=== PATIENT | male | born 1980 | race Caucasian/White ===

== ENCOUNTER 2017-08-23 19:51 | Emergency (ER) | payer SELFPAY ==
[2017-08-23] MEDS ORDERED: Aspirin Low Dose CHEW TAB* 81 MG PO ONE (23:34)
[2017-08-23 23:56] LABS: Hematocrit 44 % (42-52); Hemoglobin 14.9 g/dl (14.0-18.0); Mean Corpuscular HGB Conc 34 g/dl (31-36); Mean Corpuscular Hemoglobin 29 pg (27-31); Mean Corpuscular Volume 87 fL (80-94); Mean Platelet Volume 8 um3 (7.4-10.4); Red Blood Count 5.06 10^6/ul (4.0-5.4); Red Cell Distribution Width 13 % (10.5-15); White Blood Count 14.8 10^3/ul (3.5-10.8)
[2017-08-24 00:12] LABS: Albumin 4.6 g/dL (3.2-5.2); BUN/Creatinine Ratio 13.2 (8-20); Calcium 9.8 mg/dL (8.6-10.3); EGFR African American 119.9 (>60); EGFR Non-African American 93.2 (>60); Globulin 2.5 g/dL (2-4); Potassium 3.4 mmol/L (3.5-5.0); Total Bilirubin 0.6 mg/dL (0.2-1.0); Total Protein 7.1 g/dL (6.4-8.9)
--- NOTE | 2017-08-24 01:55 | ED ---
HPI Chest Pain - HPI Summary HPI Summary: 36M presents with intermittent chest pain today. He was driving and felt a pressure like pain in center of chest that radiated into bilateral hands. He admits to weakness. He state felt sweaty. The initial incident lasted a couple seconds. Then two minutes later had another episode. Then couple minutes later another episode that again last couple minutes and since then has felt very weak. He also states he felt dizzy. He states chest pressure has persisted. He felt SOB with episode. He states has had chest pain intermittent for past year but none of the other symptoms. He admits to nausea but denies any vomiting or abdominal pain. He states pressure is 4/10. He did not take anything. He states dad of CHF. He states family has heart problems. He is not a diabetic. He is a smoker. - History of Current Complaint Chief Complaint: EDChestPainROMI Time Seen by Provider: 08/23/17 22:22 Pain Intensity: 5 - Allergy/Home Medications Allergies/Adverse Reactions: Allergies Allergy/AdvReac Type Severity Reaction Status Date / Time No Known Allergies Allergy Verified 08/23/17 20:04 PMH/Surg Hx/FS Hx/Imm Hx Endocrine/Hematology History: Denies: Hx Anticoagulant Therapy, Hx Diabetes Cardiovascular History: Reports: Hx Hypertension Denies: Hx Myocardial Infarction Infectious Disease History: No Infectious Disease History: Denies: Traveled Outside the [place] in Last 30 Days - Family History Known Family History: Positive: Cardiac Disease - Social History Alcohol Use: Occasionally Alcohol Amount: twice a month Substance Use Type: Reports: None Smoking Status (MU): Light Every Day Tobacco Smoker Review of Systems Negative: Fever Positive: Chest Pain Positive: Shortness Of Breath. Negative: Cough Positive: Nausea. Negative: Abdominal Pain All Other Systems Reviewed And Are Negative: Yes Physical Exam Triage Information Reviewed: Yes Vital Signs On Initial Exam: Initial Vitals Temp Pulse Resp BP Pulse Ox 97.9 F 78 18 186/96 100 08/23/17 20:05 08/23/17 20:05 08/23/17 20:05 08/23/17 20:05 08/23/17 20:05 Vital Signs Reviewed: Yes Appearance: Positive: Well-Appearing Skin: Positive: Warm, Dry Head/Face: Positive: Normal Head/Face Inspection Eyes: Positive: Normal, Conjunctiva Clear ENT: Positive: Normal ENT inspection, Pharynx normal, TMs normal Respiratory/Lung Sounds: Positive: Clear to Auscultation, Breath Sounds Present , Other - nontender chest wall Cardiovascular: Positive: Normal, RRR Abdomen Description: Positive: Nontender, Soft Bowel Sounds: Positive: Present Musculoskeletal: Positive: Normal Neurological: Positive: Normal Psychiatric: Positive: Normal - Li Coma Scale Coma Scale Total: 15 Diagnostics - Vital Signs Vital Signs Temp Pulse Resp BP Pulse Ox 08/24/17 01:00 57 17 97 08/24/17 00:00 56 16 149/92 98 08/23/17 23:30 67 17 143/86 97 08/23/17 23:00 62 20 143/81 97 08/23/17 22:45 65 15 100 08/23/17 22:42 152/91 08/23/17 21:29 90 08/23/17 21:24 98.8 F 73 18 168/126 98 08/23/17 20:05 97.9 F 78 18 186/96 100 - Laboratory Lab Results: Lab Results 08/23/17 08/23/17 08/23/17 Range/Units 23:52 23:52 23:52 WBC 14.8 H (3.5-10.8) 10^3/ul RBC 5.06 (4.0-5.4) 10^6/ul Hgb 14.9 (14.0-18.0) g/dl Hct 44 (42-52) % MCV 87 (80-94) fL MCH 29 (27-31) pg MCHC 34 (31-36) g/dl RDW 13 (10.5-15) % Plt Count 279 (150-450) 10^3/ul MPV 8 (7.4-10.4) um3 Neut % (Auto) 70.2 (38-83) % Lymph % (Auto) 22.0 L (25-47) % [place] % (Auto) 5.9 (1-9) % Eos % (Auto) 1.1 (0-6) % Baso % (Auto) 0.8 (0-2) % Absolute Neuts (auto) 10.4 H (1.5-7.7) 10^3/ul Absolute Lymphs (auto) 3.3 (1.0-4.8) 10^3/ul Absolute Monos (auto) 0.9 H (0-0.8) 10^3/ul Absolute Eos (auto) 0.2 (0-0.6) 10^3/ul Absolute Basos (auto) 0.1 (0-0.2) 10^3/ul Absolute Nucleated RBC 0 10^3/ul Nucleated RBC % 0 D-Dimer, Quantitative (Less Than 230) ng/mL Sodium 139 (133-145) mmol/L Potassium 3.4 L (3.5-5.0) mmol/L Chloride 103 (101-111) mmol/L Carbon Dioxide 26 (22-32) mmol/L Anion Gap 10 (2-11) mmol/L BUN 12 (6-24) mg/dL Creatinine 0.91 (0.67-1.17) mg/dL Est GFR ( Amer) 119.9 (>60) Est GFR (Non-Af Amer) 93.2 (>60) BUN/Creatinine Ratio 13.2 (8-20) Glucose 102 H (70-100) mg/dL Lactic Acid 1.8 (0.5-2.0) mmol/L Calcium 9.8 (8.6-10.3) mg/dL Total Bilirubin 0.60 (0.2-1.0) mg/dL AST 16 (13-39) U/L ALT 21 (7-52) U/L Alkaline Phosphatase 66 (34-104) U/L Troponin I 0.00 (<0.04) ng/mL Total Protein 7.1 (6.4-8.9) g/dL Albumin 4.6 (3.2-5.2) g/dL Globulin 2.5 (2-4) g/dL Albumin/Globulin Ratio 1.8 (1-3) 08/23/ Range/Units 23:52 WBC (3.5-10.8) 10^3/ul RBC (4.0-5.4) 10^6/ul Hgb (14.0-18.0) g/dl Hct (42-52) % MCV (80-94) fL MCH (27-31) pg MCHC (31-36) g/dl RDW (10.5-15) % Plt Count (150-450) 10^3/ul MPV (7.4-10.4) um3 Neut % (Auto) (38-83) % Lymph % (Auto) (25-47) % [place] % (Auto) (1-9) % Eos % (Auto) (0-6) % Baso % (Auto) (0-2) % Absolute Neuts (auto) (1.5-7.7) 10^3/ul Absolute Lymphs (auto) (1.0-4.8) 10^3/ul Absolute Monos (auto) (0-0.8) 10^3/ul Absolute Eos (auto) (0-0.6) 10^3/ul Absolute Basos (auto) (0-0.2) 10^3/ul Absolute Nucleated RBC 10^3/ul Nucleated RBC % D-Dimer, Quantitative < 200 (Less Than 230) ng/mL Sodium (133-145) mmol/L Potassium (3.5-5.0) mmol/L Chloride (101-111) mmol/L Carbon Dioxide (22-32) mmol/L Anion Gap (2-11) mmol/L BUN (6-24) mg/dL Creatinine (0.67-1.17) mg/dL Est GFR ( Amer) (>60) Est GFR (Non-Af Amer) (>60) BUN/Creatinine Ratio (8-20) Glucose (70-100) mg/dL Lactic Acid (0.5-2.0) mmol/L Calcium (8.6-10.3) mg/dL Total Bilirubin (0.2-1.0) mg/dL AST (13-39) U/L ALT (7-52) U/L Alkaline Phosphatase (34-104) U/L Troponin I (<0.04) ng/mL Total Protein (6.4-8.9) g/dL Albumin (3.2-5.2) g/dL Globulin (2-4) g/dL Albumin/Globulin Ratio (1-3) Result Diagrams: 08/23/17 23:52 08/23/17 23:52 Lab Statement: Any lab studies that have been ordered have been reviewed, and results considered in the medical decision making process. - Radiology chest Xray Interpretation: No Acute Changes Radiology Interpretation Completed By: ED Physician - EKG 1 Cardiac Rate: NL EKG Rhythm: Sinus Rhythm ST Segment: Normal EKG Interpretation: sinus rhythm 2 Cardiac Rate: NL EKG Rhythm: Sinus Rhythm EKG Interpretation: sinus rhythm EKG Comparison: No Significant Change Re-Evaluation - Re-Evaluation First Eval Re-Evaluation Time: 02:30 Change: Unchanged - still feeling pressure, weak Comment: feels pressure and weak, no pain Chest Pain Course/Dx - Course Course Of Treatment: 36M presents with intermittent chest pain today. He was driving and felt a pressure like pain in center of chest that radiated into bilateral hands. He admits to weakness. He state felt sweaty. The initial incident lasted a couple seconds. Then two minutes later had another episode. Then couple minutes later another episode that again last couple minutes and since then has felt very weak. He also states he felt dizzy. He states chest pressure has persisted. He felt SOB with episode. He states has had chest pain intermittent for past year but none of the other symptoms. He admits to nausea but denies any vomiting or abdominal pain. He states pressure is 4/10. He did not take anything. He states dad of CHF. He states family has heart problems. He is not a diabetic. He is a smoker. on exam heart RRR, lungs CTA. labs wbc elevated at 14, d-dimer neg. troponin neg. ekg sinus rhythmn. discussed case with dr morales and do to risk factors said to discuss with hospitalist. discussed case with dr johnson who did not want to see patient. dr casillas suggests giving some ativan, repeat ekg and waiting for troponin and then send home if normal and get stress test next week. repeat ekg same. signed by out to dr morales pending troponin and if can resolve chest pressure. - Chest Pain Differential Diagnosis/HQI/PQRI: Acute OR, ACS, Chest Wall, Pulmonary Embolism - Diagnoses Provider Diagnoses: Chest pain - Provider Notifications Discussed Care Of Patient With: dr casillas Time Discussed With Above Provider: 03:00 - repeat ekg, troponin, give ativan Discharge - Discharge Plan Condition: Stable Disposition: OTHER Discharge Disposition Comment: signed out to dr multani pending troponin Referrals: [facility] [Outside] Fabiana Arellano MD [Medical Doctor] -
[2017-08-24] MEDS ORDERED: LORazepam INJ* 2 MG/ML 1 ML VIAL IV PUSH ONE ×2 (03:14→03:28)
--- NOTE | 2017-08-24 04:32 | PN ---
I, Myra Mendez, scribed for Clayton Frias MD on 08/24/17 at 0429 . Progress Note - Progress Note Date of Service: 08/24/17 Note: SO from CLAY Jimenez pending 2nd troponin. 0425: ED physician at bedside Discussing results with pt. Pt is feeling better after Ativan. COT: Repeat trop is negative. Pt feels better after Ativan. Sx are most likely due to anxiety, however, recommend he get a stress test URSULA. Pt voiced understanding. Pt given PCP referral info to f/u next week. DX: ATYPICAL CHEST PAIN. ANXIETY. DISPO: Stable, home. Establish and f/u with PCP. Recommended stress test URSULA. The documentation as recorded by the delanoibVanessa pedraza SooYoung accurately reflects the service I personally performed and the decisions made by me, Clayton Frias MD.
[2017-08-24 04:51] VITALS: BP 138/89
--- NOTE | 2017-08-24 07:52 | RAD ---
INDICATION: Chest pain. COMPARISON: There are no prior studies available for comparison. TECHNIQUE: Dual-energy PA and lateral views of the chest were obtained. FINDINGS: The heart is within normal limits in size. Mediastinal and hilar contours appear within normal limits. The lungs are clear, no pleural effusion or pneumothorax is seen. IMPRESSION: NO EVIDENCE FOR ACTIVE CARDIOPULMONARY DISEASE.
== END 2017-08-24 04:51 ==
LOC: ED 19:51
DX: R07.9 Chest pain, unspecified (principal)
CPT/HCPCS: 36415; 71020; 80053; 83605; 84484; 85025; 85379; 93005; 96374; 96375; 99283; A9270-GY; J2060

== ENCOUNTER 2018-05-29 17:50 | Emergency (ER) | payer SELFPAY ==
[2018-05-29] MEDS ORDERED: ALPRAZolam TAB* 0.25 MG ONE (17:59)
[2018-05-29] MEDS ORDERED: ALPRAZolam TAB* 0.25 MG PO ONE (18:00)
[2018-05-29] MEDS ORDERED: LORazepam INJ* 2 MG/ML 1 ML VIAL ONE (18:49)
[2018-05-29] MEDS ORDERED: NS 0.9% 1000 ML* 1,000 ML IV ONE (18:52)
[2018-05-29] MEDS ORDERED: LORazepam INJ* 2 MG/ML 1 ML VIAL IV PUSH ONE (18:53)
--- NOTE | 2018-05-29 19:05 | ED ---
Dizziness - HPI Summary HPI Summary: This patient is a 37 year old M presenting to [facility] accompanied by his family with a chief complaint of waxing and waning room-spinning dizziness since 1700, aggravated by any movement. Pt was at work when sx onset. He endorses anxiety, chest pressure, diaphoresis, tremors, and paresthesia. He denies CP. He notes that last year in July 2017 he had a similar outbreak with the same sx but not as severe as today; he was dx with panic disorder. Pt endorses smoking. PT denies PMHx DM, MO, respiratory diseases. - History Of Current Complaint Chief Complaint: EDHypertension Stated Complaint: HEAT EXPOSURE Time Seen by Provider: 05/29/18 18:42 Hx Obtained From: Patient, Family/Shift Commander Onset/Duration: Still Present, Suddenly Timing: Intermittent Episode Lasting Severity Initially: Severe Severity Currently: Moderate Character: Room Spinning, Dizzy Aggravating Factor(s): Position Change, Change In Head Position Alleviating Factor(s): Nothing Associated Signs And Symptoms: Positive: Diaphoresis, Palpitations, Chills, Other: - Chest pressure, not pain though. Anxiety. Negative: Chest Pain, SOB, Fever Related History: Similar Episode/Dx as - 07/2017, dx panic disorder - Allergies/Home Medications Allergies/Adverse Reactions: Allergies Allergy/AdvReac Type Severity Reaction Status Date / Time No Known Allergies Allergy Verified 05/29/18 17:56 Home Medications: Home Medications NK [No Home Medications Reported] 05/29/18 [History Confirmed 05/29/18] PMH/Surg Hx/FS Hx/Imm Hx Endocrine/Hematology History: Denies: Hx Anticoagulant Therapy, Hx Diabetes Cardiovascular History: Reports: Hx Hypertension Denies: Hx Myocardial Infarction Respiratory History: Denies: Hx Lung Cancer GI History: Denies: Hx Ileostomy History: Denies: Hx Dialysis Musculoskeletal History: Denies: Hx Osteoporosis Sensory History: Denies: Hx Legally Blind, Hx Deafness Opthamlomology History: Denies: Hx Legally Blind EENT History: Denies: Hx Deafness Neurological History: Denies: Hx Dementia Psychiatric History: Reports: Hx Panic Disorder Infectious Disease History: No Infectious Disease History: Denies: Traveled Outside the [place] in Last 30 Days - Family History Known Family History: Positive: Cardiac Disease - Social History Occupation: Employed Full-time Lives: With Family Alcohol Use: Weekly Alcohol Amount: twice a week Substance Use Type: Reports: None Smoking Status (MU): Heavy Every Day Tobacco Smoker Review of Systems Positive: Chills - shakes, Skin Diaphoresis. Negative: Fever Positive: Palpitations, Other - chest pressure Positive: no symptoms reported Neurological: Other - POSITIVE: Room spinning dizziness Positive: Paresthesia Positive: Anxious All Other Systems Reviewed And Are Negative: Yes Physical Exam - Summary Physical Exam Summary: Appearance: Well appearing, no pain distress Skin: warm, dry, reflects adequate perfusion Head/face: normal Eyes: EOMI, JESÚS ENT: normal Neck: supple, non-tender Respiratory: CTA, breath sounds present Cardiovascular: tachycardic, pulses symmetrical Abdomen: non-tender, soft Bowel: present Musculoskeletal: normal, strength/ROM intact Neuro: normal, sensory motor intact, A&Ox3 Psych: anxious Triage Information Reviewed: Yes Vital Signs On Initial Exam: Initial Vitals Temp Pulse Resp BP Pulse Ox 97.7 F 112 20 185/120 99 05/29/18 17:53 05/29/18 17:53 05/29/18 17:53 05/29/18 17:53 05/29/18 17:53 Vital Signs Reviewed: Yes Diagnostics - Vital Signs Vital Signs Temp Pulse Resp BP Pulse Ox 05/29/18 18:55 18 05/29/18 18:38 110 19 181/123 98 05/29/18 18:26 111 23 194/119 99 05/29/18 18:01 17 05/29/18 18:00 108 22 100 05/29/18 17:56 102 22 185/120 98 05/29/18 17:55 107 22 174/126 99 05/29/18 17:53 97.7 F 112 20 185/120 99 - Laboratory Result Diagrams: 05/29/18 19:12 05/29/18 19:12 Lab Statement: Any lab studies that have been ordered have been reviewed, and results considered in the medical decision making process. - Radiology CXR Xray Interpretation: No Acute Changes Radiology Interpretation Completed By: ED Physician - normal chest XR - CT Brain CT Interpretation: Positive (See Comments) CT Interpretation Completed By: Radiologist - 1. Chronic sinus disease involving the sphenoid sinus versus aneurysm. Recommend repeat examination with intravenous contrast enhancement to clarify. 2. No other acute findings. Dr. Chapin has reviewed this report. - EKG 1809 Cardiac Rate: Tachycardia 1843 Cardiac Rate: Tachycardia EKG Rhythm: Sinus Tachycardia ST Segment: Normal Ectopy: None EKG Interpretation: No acute changes. Re-Evaluation - Re-Evaluation First Eval Re-Evaluation Time: 20:54 Change: Improved Comment: wanted to speak to Dr. Chapin before his CTA of head and neck. Dizzy Course/Dx - Course Course Of Treatment: A 37-year-old M presents to the ED with a CC of dizziness [id number]. (+) anxiety, chest pressure, diaphoresis, chills/shakes, paresthesia. (-) CP. Background. A CXR was (-). A CTB reveals 1. Chronic sinus disease involving the sphenoid sinus versus aneurysm. Recommend repeat examination with intravenous contrast enhancement to clarify. 2. No other acute findings. An EKG reveals sinus tachycardia at 112 BPM with no acute changes. In the ED course, pt was given xanax, ativan, and nl saline. Patient at present feels better but CAT scan showed pain and sinus versus aneurysm radiology recommended CT of head and neck waiting for the procedure well signed out to Dr. Ellis to follow-up. - Diagnoses Differential Diagnosis/HQI/PQRI: Hyperventilation, Other - anxeity reaction Provider Diagnoses: Anxiety Discharge - Sign-Out/Discharge Documenting (check all that apply): Sign-Out Patient Signing out patient TO: Burton Tobin - CTA head/neck - Discharge Plan Referrals: No Primary Care Phys,NOPCP [Primary Care Provider] - - Attestation Statements Document Initiated by Savannaibmilo: Yes Documenting Scribe: Jairo Sharp Provider For Whom Teri is Documenting (Include Credential): Dr. Clem Chapin MD Scribe Attestation: Jairo Salazar scribed for Dr. Clem Chapin MD on 05/29/18 at 2147. Scribe Documentation Reviewed: Yes Provider Attestation: The documentation as recorded by the Jairo rod accurately reflects the service I personally performed and the decisions made by me, Dr. Clem Chapin MD
[2018-05-29 19:22] LABS: ABS Basophils 0 10^3/ul (0-0.2); ABS Eosinophils 0 10^3/ul (0-0.6); ABS Lymphocytes 0.9 10^3/ul (1.0-4.8); ABS Monocytes 0.5 10^3/ul (0-0.8); ABS Neutrophils 8.2 10^3/ul (1.5-7.7); ABS Nucleated RBC 0 10^3/ul; Eosinophil % 0.3 % (0-6); Hematocrit 42 % (42-52); Hemoglobin 14.4 g/dl (14.0-18.0); Lymphocyte % 9.4 % (25-47); Mean Corpuscular HGB Conc 34 g/dl (31-36); Mean Corpuscular Hemoglobin 30 pg (27-31); Mean Corpuscular Volume 87 fL (80-94); Mean Platelet Volume 7.7 um3 (7.4-10.4); Nucleated Red Blood Cells % 0.1; Platelet Count 268 10^3/ul (150-450); Red Blood Count 4.88 10^6/ul (4.00-5.40); Red Cell Distribution Width 12 % (10.5-15); White Blood Count 9.6 10^3/ul (3.5-10.8)
[2018-05-29 19:31] LABS: INR 0.94 (0.77-1.02)
[2018-05-29 19:44] LABS: EGFR Non-African American 93.9 (>60)
--- NOTE | 2018-05-29 19:46 | RAD ---
EXAM: CT Head Without Intravenous Contrast CLINICAL HISTORY: 37 years old, male; Signs and symptoms; Dizziness; Additional info: Dizzy TECHNIQUE: Axial computed tomography images of the head/brain without intravenous contrast. All CT scans at this facility use at least one of these dose optimization techniques: automated exposure control; mA and/or kV adjustment per patient size (includes targeted exams where dose is matched to clinical indication); or iterative reconstruction. COMPARISON: No relevant prior studies available. FINDINGS: Brain: Unremarkable. No hemorrhage. No significant white matter disease. No edema. Ventricles: Unremarkable. No ventriculomegaly. Bones/joints: Unremarkable. No acute fracture. Soft tissues: Unremarkable. Vasculature: Soft tissue density projecting in the right half of the sphenoid sinus may also represent chronic sinus disease but distal internal carotid artery aneurysm not entirely excluded. Sinuses: Chronic sinus disease. Mastoid air cells: Unremarkable as visualized. No mastoid effusion. IMPRESSION: 1. Chronic sinus disease involving the sphenoid sinus versus aneurysm. Recommend repeat examination with intravenous contrast enhancement to clarify. 2. No other acute findings.
[2018-05-29] MEDS ORDERED: Iohexol 350* (CONTRAST) 500 ML MDV IV ONE (20:04)
--- NOTE | 2018-05-29 23:28 | RAD ---
EXAM: CT Angiography Head With Intravenous Contrast CLINICAL HISTORY: 37 years old, male; Signs and symptoms; Vertigo; Additional info: Aneurysm intracranial TECHNIQUE: Axial computed tomographic angiography images of the head with intravenous contrast using CT angiography protocol. All CT scans at this facility use at least one of these dose optimization techniques: automated exposure control; mA and/or kV adjustment per patient size (includes targeted exams where dose is matched to clinical indication); or iterative reconstruction. MIP reconstructed images were created and reviewed. Coronal and sagittal reformatted images were created and reviewed. CONTRAST: 80 mL of OMNIPAQUE 350 administered intravenously. COMPARISON: No relevant prior studies available. FINDINGS: Right internal carotid artery: No acute findings. Intracranial segment is patent with no significant stenosis. No aneurysm. Right anterior cerebral artery: Unremarkable. No occlusion or significant stenosis. No aneurysm. Right middle cerebral artery: Unremarkable. No occlusion or significant stenosis. No aneurysm. Right posterior cerebral artery: Unremarkable. No occlusion or significant stenosis. No aneurysm. Right vertebral artery: Hypoplastic right vertebral artery. Left internal carotid artery: No acute findings. Intracranial segment is patent with no significant stenosis. No aneurysm. Left anterior cerebral artery: Unremarkable. No occlusion or significant stenosis. No aneurysm. Left middle cerebral artery: Unremarkable. No occlusion or significant stenosis. No aneurysm. Left posterior cerebral artery: Unremarkable. No occlusion or significant stenosis. No aneurysm. Left vertebral artery: Unremarkable as visualized. Basilar artery: Unremarkable. No occlusion or significant stenosis. No aneurysm. Dural sinuses/cerebral veins: No evidence of a thrombus involving the superficial or deep cerebral veins. Brain: CT scan brain: No abnormal contrast enhancement within the brain parenchyma. The perfusion pattern the araiza matter is normal. IMPRESSION: No acute findings. EXAM: CT Angiography Neck With Intravenous Contrast CLINICAL HISTORY: 37 years old, male; Signs and symptoms; Vertigo; Additional info: Aneurysm intracranial TECHNIQUE: Axial computed tomographic angiography images of the neck with intravenous contrast using CT angiography protocol. All CT scans at this facility use at least one of these dose optimization techniques: automated exposure control; mA and/or kV adjustment per patient size (includes targeted exams where dose is matched to clinical indication); or iterative reconstruction. 3D and MIP reconstructed images were created and reviewed. Coronal and sagittal reformatted images were created and reviewed. CONTRAST: 80 mL of OMNIPAQUE 350 administered intravenously. 80 mL of OMNIPAQUE 350 administered intravenously. COMPARISON: BRAIN WO CT BRAIN WO 05/29/2018 7:06 PM FINDINGS: VASCULATURE: Right common carotid artery: Unremarkable. No significant stenosis. No dissection or occlusion. Right internal carotid artery: Tortuous right cervical internal carotid artery. No significant kinking. Extracranial segment is patent with no significant stenosis. No dissection or occlusion. Right external carotid artery: Unremarkable. No occlusion. Right vertebral artery: Hypoplastic right vertebral artery. No significant stenosis. No dissection or occlusion. Left common carotid artery: Unremarkable. No significant stenosis. No dissection or occlusion. Left internal carotid artery: Tortuous cervical left internal carotid artery. No hemodynamically significant kinking. Extracranial segment is patent with no significant stenosis. No dissection or occlusion. Left external carotid artery: Unremarkable. No occlusion. Left vertebral artery: Unremarkable. No significant stenosis. No dissection or occlusion. NECK: Bones/joints: No acute fracture. No dislocation. Soft tissues: Unremarkable as visualized. No mass. CAROTID STENOSIS REFERENCE USING NASCET CRITERIA: % ICA stenosis = (1 - narrowest ICA diameter/diameter of distal cervical ICA) x 100. Mild - <50% stenosis. Moderate - 50-69% stenosis. Severe - 70-94% stenosis. Near occlusion - 95-99% stenosis. Occluded - 100% stenosis. IMPRESSION: No acute findings.
--- NOTE | 2018-05-29 23:36 | ED ---
Progress - Progress Note Progress Note: Pt signed out to me pending CTA to f/u an abnormality on unenhanced CT of the brain. That study is negative, no vascular or other issues found. Re-Evaluation - Re-Evaluation First Eval Re-Evaluation Time: 20:54 Change: Improved Comment: wanted to speak to Dr. Chapin before his CTA of head and neck. Course/Dx - Course Course Of Treatment: A 37-year-old M presents to the ED with a CC of dizziness [id number]. (+) anxiety, chest pressure, diaphoresis, chills/shakes, paresthesia. (-) CP. Background. A CXR was (-). A CTB reveals 1. Chronic sinus disease involving the sphenoid sinus versus aneurysm. Recommend repeat examination with intravenous contrast enhancement to clarify. 2. No other acute findings. An EKG reveals sinus tachycardia at 112 BPM with no acute changes. In the ED course, pt was given xanax, ativan, and nl saline. Patient at present feels better but CAT scan showed pain and sinus versus aneurysm radiology recommended CT of head and neck waiting for the procedure well signed out to Dr. Ellis to follow-up. - Diagnoses Provider Diagnoses: Anxiety Discharge - Sign-Out/Discharge Documenting (check all that apply): Patient Departure, Receiving Sign-Out Signing out patient TO: Burton Tobin Receiving patient FROM: Clem Chapin - Discharge Plan Condition: Good Disposition: HOME Patient Education Materials: Vertigo (ED) Referrals: [facility] [Outside] Additional Instructions: The imaging tests tonight were normal, we did not find any structural problem in the brain or its blood supply to explain your symptoms. - Billing Disposition and Condition Condition: GOOD Disposition: Home
[2018-05-29 23:44] VITALS: BP 129/69
--- NOTE | 2018-05-30 07:27 | RAD ---
INDICATION: Short of breath COMPARISON: August 23, 2017 TECHNIQUE: An AP portable view obtained at 1900 hours is submitted. FINDINGS: Bones/Soft Tissues: There are no acute bony findings. Cardiomediastinal: The cardiomediastinal silhouette is normal. Lungs: There are no infiltrates. Pleura: There are no pleural effusions. Other: None IMPRESSION: NO ACTIVE DISEASE. R1
== END 2018-05-29 23:43 | disposition home or self-care (01) ==
LOC: ED 17:50
DX: F41.9 Anxiety disorder, unspecified (principal); R07.89 Other chest pain; R00.0 Tachycardia, unspecified; F17.200 Nicotine dependence, unspecified, uncomplicated
CPT/HCPCS: 36415; 70450; 70496; 70498; 71045; 80053; 83735; 84443; 84484; 85025; 85379; 85610; 85730; 93005; 96374; 99283; A9270-GY; J2060; Q9967

== ENCOUNTER → 2019-01-09 18:35 | Emergency (ER) | payer SELFPAY ==
[~2019-01-09 18:35] MED LIST: Aspirin 81 mg CHEW TAB* 81 MG TAB.CHEW PO ONE; Diazepam TAB(*) 5 MG PO ONE
--- NOTE | 2019-01-09 20:15 | ED ---
HPI Chest Pain - HPI Summary HPI Summary: A 38 y/o male presents to [facility] with a chief complaint of chest tightness today. He also reports left arm pain, feeling anxious, lightheadedness, starting when he was on the toilet. At triage he rated his pain as a 6/10 in severity. He claims that this episode started at about 17:30. He reports some diaphoresis. He denies N/V/D, SOB, cough, constipation, urinary symptoms. He reports that he has chest tightness for about a year. He was put on BP medications for HTN, but has been not taken it because he has been out of it for months. He reports that he quit smoking for a few months. He denies any long distance travel or surgical procedures in last three months. In the room his HR is 114 bpm and he says that usually his HR is not that high. - History of Current Complaint Chief Complaint: EDChestPainROMI Time Seen by Provider: 01/09/19 20:09 Hx Obtained From: Patient Onset/Duration: Started Hours Ago, Still Present Timing: Constant, Lasting Hours Initial Severity: Moderate Current Severity: Moderate Pain Intensity: 6 Pain Scale Used: 0-10 Numeric Chest Pain Location: Diffuse Chest Pain Radiates: Yes Chest Pain Radiates To:: Arm - left Character: Tightness Aggravating Factor(s): Nothing Alleviating Factor(s): Nothing Associated Signs and Symptoms: Positive: Lightheadedness, Diaphoresis. Negative : Fever, Nausea, Vomiting - Allergy/Home Medications Allergies/Adverse Reactions: Allergies Allergy/AdvReac Type Severity Reaction Status Date / Time No Known Allergies Allergy Verified 01/09/19 18:45 PMH/Surg Hx/FS Hx/Imm Hx Endocrine/Hematology History: Denies: Hx Anticoagulant Therapy, Hx Diabetes Cardiovascular History: Reports: Hx Hypertension Denies: Hx Myocardial Infarction Respiratory History: Denies: Hx Lung Cancer GI History: Denies: Hx Ileostomy History: Denies: Hx Dialysis Musculoskeletal History: Denies: Hx Osteoporosis Sensory History: Denies: Hx Legally Blind, Hx Deafness Opthamlomology History: Denies: Hx Legally Blind Neurological History: Denies: Hx Dementia Psychiatric History: Reports: Hx Panic Disorder Infectious Disease History: No Infectious Disease History: Denies: Traveled Outside the [place] in Last 30 Days - Family History Known Family History: Positive: Cardiac Disease - Social History Alcohol Use: Weekly Alcohol Amount: twice a week Substance Use Type: Reports: None Smoking Status (MU): Heavy Every Day Tobacco Smoker Review of Systems Negative: Fever Positive: Chest Pain Negative: Shortness Of Breath, Cough Negative: Vomiting, Diarrhea, Nausea Positive: no symptoms reported Neurological: Other - positive: lightheadedness All Other Systems Reviewed And Are Negative: Yes Physical Exam - Summary Physical Exam Summary: Constitutional: Well-developed, Well-nourished, Alert. (-) Distressed Skin: Warm, Dry HENT: Normocephalic; Atraumatic Eyes: Conjunctiva normal Neck: Musculoskeletal ROM normal neck. (-) JVD, (-) Stridor, (-) Tracheal deviation Cardio: Rhythm regular, rate normal, Heart sounds normal; Intact distal pulses; The pedal pulses are 2+ and symmetric. Radial pulses are 2+ and symmetric. (-) Murmur Pulmonary/Chest wall: TTP subclavicular. (-) Respiratory distress, (-) Wheezes, (-) Rales Abd: Soft, (-) tenderness, (-) Distension, (-) Guarding, (-) Rebound Musculoskeletal: (-) Edema Lymph: (-) Cervical adenopathy Neuro: Alert, Oriented x3 Psych: anxious Triage Information Reviewed: Yes Vital Signs On Initial Exam: Initial Vitals Temp Pulse Resp BP Pulse Ox 98.7 F 113 19 198/127 100 01/09/19 18:46 01/09/19 18:46 01/09/19 18:46 01/09/19 18:46 01/09/19 18:46 Vital Signs Reviewed: Yes Diagnostics - Vital Signs Vital Signs Temp Pulse Resp BP Pulse Ox 01/09/19 18:46 98.7 F 113 19 198/127 100 - Laboratory Result Diagrams: 01/09/19 20:34 01/09/19 20:34 Lab Statement: Any lab studies that have been ordered have been reviewed, and results considered in the medical decision making process. - Radiology CXR Radiology Interpretation Completed By: ED Physician Summary of Radiographic Findings: No acute disease. Pending official imaging report. - EKG 18:52 Cardiac Rate: Tachycardia - 112 bpm EKG Rhythm: Sinus Tachycardia EKG Comparison: No Significant Change Summary of EKG Findings: Sinus Tachycardia at 112 bpm, normal VT, normal QRS, normal QTc, normal axis, normal ST, normal T-waves, ST otherwise normal EKG. Unchanged from 05/29/18. Re-Evaluation - Re-Evaluation First Eval Re-Evaluation Time: 22:04 Change: Improved Comment: Patient reports feeling great. Chest Pain Course/Dx - Course Course Of Treatment: A 38 y/o male presents to [facility] with a chief complaint of chest tightness today. He also reports left arm pain, feeling anxious and lightheadedness. The physical exam revealed the patient was anxious, and was TTP subclavicular. In the ED course the patient was given Valium PO and Aspirin PO. Blood work and chemistries obtained and are WNL. CXR showed no acute disease. Upon re-eval the patient is feeling better. The patient will be signed out to Dr. Frias, pending second troponin. - Diagnoses Provider Diagnoses: Chest pain Discharge - Sign-Out/Discharge Documenting (check all that apply): Patient Departure Signing out patient TO: Clayton Frias - pending second troponin Patient Received Moderate/Deep Sedation with Procedure: No - Discharge Plan Condition: Good Disposition: HOME Prescriptions: Hydrochlorothiazide TAB* [Hydrodiuril TAB*] 25 mg PO DAILY #20 tab Patient Education Materials: Chest Pain (ED) Print Language: ESTONIAN Referrals: No Primary Care Phys,NOPCP [Primary Care Provider] - - Billing Disposition and Condition Condition: GOOD Disposition: Home - Attestation Statements Document Initiated by Savannaibe: Yes Documenting Scribe: Adan Perez Provider For Whom Teri is Documenting (Include Credential): Milena Whitney MD Scribe Attestation: I, Adan Perez, scribed for Milena Sweet MD on 01/09/19 at 2313. Scribe Documentation Reviewed: Yes Provider Attestation: The documentation as recorded by the Adan rod accurately reflects the service I personally performed and the decisions made by me, Milena Sweet MD Status of Scribe Document: Viewed
[2019-01-09 20:41] LABS: ABS Basophils 0 10^3/ul (0-0.2); ABS Eosinophils 0.1 10^3/ul (0-0.6); ABS Lymphocytes 1.3 10^3/ul (1.0-4.8); ABS Monocytes 0.4 10^3/ul (0-0.8); ABS Neutrophils 7.2 10^3/ul (1.5-7.7); ABS Nucleated RBC 0 10^3/ul; Eosinophil % 0.7 %; Hematocrit 40 % (36-46); Hemoglobin 13.6 g/dL (14.0-18.0); Lymphocyte % 14.2 %; Mean Corpuscular HGB Conc 34 g/dL (31-36); Mean Corpuscular Hemoglobin 29 pg (27-31); Mean Corpuscular Volume 87 fL (80-94); Nucleated Red Blood Cells % 0; Platelet Count 251 10^3/uL (150-450); Red Blood Count 4.61 10^6 /uL (4.18-5.48); Red Cell Distribution Width 13 % (10.5-15)
[2019-01-09 20:58] LABS: Albumin 4.7 g/dL (3.2-5.2); Albumin/Globulin Ratio 1.8 (1-3); BUN/Creatinine Ratio 19.8 (8-20); Calcium 9.7 mg/dL (8.6-10.3); EGFR African American 127.7 (>60); EGFR Non-African American 105.5 (>60); Globulin 2.6 g/dL (2-4); Potassium 4.3 mmol/L (3.5-5.0); Total Bilirubin 0.3 mg/dL (0.2-1.0); Total Protein 7.3 g/dL (6.4-8.9)
[2019-01-10 00:45] VITALS: BP 159/93
== END | disposition home or self-care (01) ==
LOC: ED 18:35
DX: R07.9 Chest pain, unspecified (principal); R94.31 Abnormal electrocardiogram [ECG] [EKG]; I10 Essential (primary) hypertension; F17.210 Nicotine dependence, cigarettes, uncomplicated
CPT/HCPCS: 36415; 71045; 80053; 83605; 83880; 84484; 85025; 85379; 93005; 99282; A9270-GY

== ENCOUNTER 2019-02-18 16:40 | Observation (INO) | payer SELFPAY ==
--- OUTSIDE RECORDS SUMMARY | 2019-02-18 16:53 | XMS REPORT | Continuity of Care Document ---
:1980 External Reference #:[id number] Author Name Jose Angel Dahl MD Address [address] [place] [address] Care Team Providers Name Role Phone Jose Angel Dahl MD Care Team Information Assistant Editor Unavailable Jose Angel Dahl MD Primary Care Physician Unavailable Payers Description No Information Available Advance Directives Description No Information Available Problems Description No Information Family History Date Family Member(s) Observation Comments Father due to Pancreatic Cancer () Mother No Current Problems Social History Type Date Description Comments Sex Unknown 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 ETOH Use Currently consumes alcohol Recreational Drug Use Denies Drug Use Tobacco Use Start: Unknown End: Unknown Patient is a former smoker Tobacco Use Start: Unknown Vaping Smoking Status Reviewed: 01/19/19 Vaping Allergies, Adverse Reactions, Alerts Description No Known Drug Allergies Medications Active Medications SIG Qnty Indications Ordering Provider Date Colchicine 1 tab by mouth 14caps Jose Angel TElidia 02/16/2019 0.6mg as needed for MD [facility] Capsules gout rescue Prednisone 5 tablets daily 39tabs Jose Angel TElidia 01/28/2019 10mg Tablets in am for 3 MD [place] days, then 4 tabs in am for 3 days, then 3 tabs daily for 3 days, then 1 tab daily for 3 days. Carvedilol 1 by mouth twice 180tabs Jose Angel TElidia 01/19/2019 6.25mg a day MD [place] Tablets History Medications Hydrochlorothiazide 1 by mouth every Unknown - 01/19/2019 25mg Tablets day Immunizations Description No Information Available Vital Signs Date Vital Result Comment 02/16/2019 2:12pm BP Systolic 130 mmHg BP Diastolic 88 mmHg Heart Rate 65 /min Body Temperature 100.2 F Respiratory Rate 12 /min Height 66 inches 5'6" Weight 179.00 lb BMI (Body Mass Index) 28.9 kg/m2 01/27/2019 1:39pm BP Systolic 146 mmHg BP Diastolic 88 mmHg Heart Rate 60 /min Respiratory Rate 16 /min Height 66 inches 5'6" Weight 184.25 lb BMI (Body Mass Index) 29.7 kg/m2 01/19/2019 2:11pm BP Systolic 170 mmHg BP Diastolic 90 mmHg Heart Rate 100 /min Body Temperature 97.5 F Respiratory Rate 16 /min Height 66 inches 5'6" Weight 177.00 lb BMI (Body Mass Index) 28.6 kg/m2 Results Description No Information Available Procedures Description No Information Available Encounters Type Date Location Provider Dx Diagnosis Office Visit 01/27/2019 Main Office Jose Angel B[facility]on Ess[facility] (primary) 1:30p MD [place] hypertension Office Visit 01/19/2019 [facility] Office Jose Angel [place] Essential (primary) 2:20p MD [place] hypertension R00.2 Palpitations Plan of Treatment Future Appointment(s):09/11/2019 2:00 pm - Jose Angel Dahl MD at Main Qtqeof3502/16/2019 - Jose Angel Dahl MDI10 Essential (primary) [id number] [id number] Gout, unspecifiedAllNew Medication: Colchicine 0.6 mg - 1 tab by mouth as needed for gout rescueComments:Medication Management Patient Understands medications he's taking? Yes No Are there Barriersto Adherence? Yes No Has the patient been asked about herbal supplements and therapies, and OTC meds? Yes No
--- OUTSIDE RECORDS SUMMARY | 2019-02-18 16:53 | XMS REPORT | Continuity of Care Document ---
:1980 External Reference #:[id number] Author Name Jose Angel Dahl MD Address [address] [place] [address] Care Team Providers Name Role Phone Jose Angel Dahl MD Care Team Information Installment Dealer Unavailable Jose Angel Dahl MD Primary Care Physician Unavailable Payers Description No Information Available Advance Directives Description No Information Available Problems Description No Information Family History Date Family Member(s) Observation Comments Father due to Pancreatic Cancer () Mother No Current Problems Social History Type Date Description Comments 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 ETOH Use Currently consumes alcohol Recreational Drug Use Denies Drug Use Tobacco Use Start: Unknown End: Unknown Patient is a former smoker Tobacco Use Start: Unknown Vaping Smoking Status Reviewed: 01/19/19 Vaping Allergies, Adverse Reactions, Alerts Description No Known Drug Allergies Medications Active Medications SIG Qnty Indications Ordering Provider Date Carvedilol 1 by mouth 60tabs Jose Angel Dowd 01/19/2019 6.25mg Tablets twice a day MD [facility] History Medications Hydrochlorothiazide 1 by mouth every Unknown - 01/19/2019 25mg Tablets day Immunizations Description No Information Available Vital Signs Date Vital Result Comment 01/19/2019 2:11pm BP Systolic 170 mmHg BP Diastolic 90 mmHg Heart Rate 100 /min Body Temperature 97.5 F Respiratory Rate 16 /min Height 66 inches 5'6" Weight 177.00 lb BMI (Body Mass Index) 28.6 kg/m2 Results Description No Information Available Procedures Description No Information Available Encounters Description No Information Available Plan of Treatment Future Appointment(s):01/27/2019 1:30 pm - Jose Angel Dahl MD at Main [id number]/19/2019 - Jose Angel Dahl MDI10 Essential (primary) [id number] PalpitationsAllNew Medication:Carvedilol 6.25 mg - 1 by mouth twice a dayComments:Medication Management Patient Understands medications he's taking? Yes No Are there Barriersto Adherence? Yes No Has the patient been asked about herbal supplements and therapies, and OTC meds? Yes No
[2019-02-18] MEDS ORDERED: Ondansetron INJ* 2 MG/ML VIAL IV ONE (21:06)
[2019-02-18] MEDS ORDERED: NS 0.9% 1000 ML** 1,000 ML IV ONE (21:06)
[2019-02-18] MEDS ORDERED: Morphine 4 MG/ML VIAL (1 ml) 4 MG/ML VIAL IV ONE ×2 (21:06→22:33)
[2019-02-18] MEDS ORDERED: Ketorolac INJ* 30 MG/ML 1 ML VIAL IV PUSH ONE (21:06)
[2019-02-18 21:19] LABS: ABS Lymphocytes 1.7 10^3/ul (1.0-4.8); ABS Neutrophils 10.1 10^3/ul (1.5-7.7); Eosinophil % 0.2 %; Hematocrit 41 % (42-52); Hemoglobin 13.6 g/dL (14.0-18.0); Lymphocyte % 13.1 %; Mean Corpuscular HGB Conc 34 g/dL (31-36); Mean Corpuscular Hemoglobin 29 pg (27-31); Mean Corpuscular Volume 87 fL (80-94); Mean Platelet Volume 7.9 fL (7.4-10.4); Platelet Count 246 10^3/uL (150-450); Red Blood Count 4.66 10^6 /uL (4.18-5.48); Red Cell Distribution Width 13 % (10.5-15); White Blood Count 12.9 10^3/uL (3.5-10.8)
[2019-02-18 21:34] LABS: Albumin/Globulin Ratio 1.8 (1-3); BUN/Creatinine Ratio 15.7 (8-20); Calcium 10.2 mg/dL (8.6-10.3); EGFR African American 114.6 (>60); EGFR Non-African American 94.7 (>60); Globulin 2.8 g/dL (2-4); Potassium 4.3 mmol/L (3.5-5.0); Total Bilirubin 0.5 mg/dL (0.2-1.0); Total Protein 7.8 g/dL (6.4-8.9)
--- NOTE | 2019-02-18 22:07 | ED ---
GI/ HPI - HPI Summary HPI Summary: Patient is a 38 y/o M presenting to ED with complaints of N/V, hematuria and right flank pain. He claims he has a known kidney stone at his right side. Patient has been experiencing Sx for the past few days. He notes that movement aggravates Sx. He claims to have not been taking any pain medications for Sx. Patient is a former patient of Dr. Caballero but has been experiencing trouble with his insurance. PMHx of HTN and gout reported. Weekly alcohol usage is endorsed, no substance usage, patient is a former smoker. On triage, pain is rated 10/10. Home medications and allergies are reviewed. - History of Current Complaint Chief Complaint: EDFlankPain Time Seen by Provider: 02/18/19 21:04 Stated Complaint: KIDNEY STONE PER PT Hx Obtained From: Patient Onset/Duration: Started Days Ago, Still Present Timing: Constant, Lasting Days Severity: Severe Current Severity: Severe Pain Intensity: 10 Location of Pain: Flank - right Associated Signs and Symptoms: Positive: Nausea, Vomiting, Hematuria, Flank Pain - right Aggravating Factor(s): Movement Alleviating Factor(s): Nothing - Allergy/Home Medications Allergies/Adverse Reactions: Allergies Allergy/AdvReac Type Severity Reaction Status Date / Time No Known Allergies Allergy Verified 02/18/19 21:13 PMH/Surg Hx/FS Hx/Imm Hx Endocrine/Hematology History: Denies: Hx Anticoagulant Therapy, Hx Diabetes Cardiovascular History: Reports: Hx Hypertension Denies: Hx Myocardial Infarction Respiratory History: Denies: Hx Lung Cancer GI History: Denies: Hx Ileostomy History: Denies: Hx Dialysis Musculoskeletal History: Denies: Hx Osteoporosis Sensory History: Denies: Hx Legally Blind, Hx Deafness Opthamlomology History: Denies: Hx Legally Blind Neurological History: Denies: Hx Dementia Psychiatric History: Reports: Hx Panic Disorder Infectious Disease History: No Infectious Disease History: Denies: Traveled Outside the [place] in Last 30 Days - Family History Known Family History: Positive: Cardiac Disease - Social History Alcohol Use: Weekly Alcohol Amount: twice a week Substance Use Type: Reports: None Smoking Status (MU): Former Smoker Review of Systems Positive: Vomiting, Nausea Positive: flank pain - right, hematuria All Other Systems Reviewed And Are Negative: Yes Physical Exam - Summary Physical Exam Summary: Appearance: Well-appearing, Well-nourished, Pacing in room, appears uncomfortable Skin: Warm, dry, no obvious rash Eyes: sclera anicteric, no conjunctival pallor ENT: mucous membranes moist, pharynx appears normal Neck: Supple, nontender Respiratory: Clear to auscultation, no signs of respiratory distress Cardiovascular: Normal S1, S2. No murmurs. Normal distal pulses in tibial and radial bilaterally. Abdomen: Soft, nontender, normal active bowel sounds present Musculoskeletal: Normal, Strength/ROM Intact Neurological: A&Ox3, awake and alert, mentation is normal, speech is fluent and appropriate Psychiatric: affect is normal, does not appear anxious or depressed Triage Information Reviewed: Yes Vital Signs On Initial Exam: Initial Vitals Temp Pulse Resp BP Pulse Ox 98.0 F 88 19 194/118 99 02/18/19 16:42 02/18/19 16:42 02/18/19 16:42 02/18/19 16:42 02/18/19 16:42 Vital Signs Reviewed: Yes Diagnostics - Vital Signs Vital Signs Temp Pulse Resp BP Pulse Ox 02/18/19 21:27 20 02/18/19 18:54 99.4 F 70 20 168/107 100 02/18/19 16:42 98.0 F 88 19 194/118 99 - Laboratory Lab Results: Lab Results 02/18/19 02/18/19 Range/Units 20:52 20:52 WBC 12.9 H (3.5-10.8) 10^3/uL RBC 4.66 (4.18-5.48) 10^6 /uL Hgb 13.6 L (14.0-18.0) g/dL Hct 41 L (42-52) % MCV 87 (80-94) fL MCH 29 (27-31) pg MCHC 34 (31-36) g/dL RDW 13 (10.5-15) % Plt Count 246 (150-450) 10^3/uL MPV 7.9 (7.4-10.4) fL Neut % (Auto) 78.4 % Lymph % (Auto) 13.1 % Harmon % (Auto) 8.0 % Eos % (Auto) 0.2 % Baso % (Auto) 0.3 % Absolute Neuts (auto) 10.1 H (1.5-7.7) 10^3/ul Absolute Lymphs (auto) 1.7 (1.0-4.8) 10^3/ul Absolute Monos (auto) 1.0 H (0-0.8) 10^3/ul Absolute Eos (auto) 0.0 (0-0.6) 10^3/ul Absolute Basos (auto) 0.0 (0-0.2) 10^3/ul Absolute Nucleated RBC 0.0 10^3/ul Nucleated RBC % 0.0 Sodium 141 (135-145) mmol/L Potassium 4.3 (3.5-5.0) mmol/L Chloride 106 (101-111) mmol/L Carbon Dioxide 27 (22-32) mmol/L Anion Gap 8 (2-11) mmol/L BUN 14 (6-24) mg/dL Creatinine 0.89 (0.67-1.17) mg/dL Est GFR ( Amer) 114.6 (>60) Est GFR (Non-Af Amer) 94.7 (>60) BUN/Creatinine Ratio 15.7 (8-20) Glucose 102 H (70-100) mg/dL Calcium 10.2 (8.6-10.3) mg/dL Total Bilirubin 0.50 (0.2-1.0) mg/dL AST 19 (13-39) U/L ALT 24 (7-52) U/L Alkaline Phosphatase 63 (34-104) U/L Total Protein 7.8 (6.4-8.9) g/dL Albumin 5.0 (3.2-5.2) g/dL Globulin 2.8 (2-4) g/dL Albumin/Globulin Ratio 1.8 (1-3) Result Diagrams: 02/18/19 20:52 02/18/19 20:52 Lab Statement: Any lab studies that have been ordered have been reviewed, and results considered in the medical decision making process. - CT CT ABD/PEL CT Interpretation Completed By: Radiologist Summary of CT Findings: ABD/PEL CT IMPRESSION: There is a 6 mm calculus in the proximal right ureter with mild to moderate. right obstructive uropathy. There is additional nonobstructing bilateral. nephrolithiasis. THIS REPORT WAS REVIEWED BY DR. KITCHEN - Ultrasound No standard instances Ultrasound Interpretation Completed By: Radiologist Summary of Ultrasound Findings: US RENAL IMPRESSION: There are multiple echogenic calculi in the right kidney, the largest measuring. a maximum of 12 mm with mild right hydronephrosis. THIS REPORT WAS REVIEWED BY DR. KITCHEN Re-Evaluation - Re-Evaluation First Eval Re-Evaluation Time: 22:54 Change: Worse Comment: pain increased, morphine ordered Second Eval Re-Evaluation Time: 00:16 Comment: Results of labs and tests were discussed, patient agreeable with admission. GIGU Course/Dx - Course Course Of Treatment: Patient is a 38 y/o M presenting to ED with complaints of N /V, hematuria and right flank pain. He claims he has a known kidney stone at his right side. Patient has been experiencing Sx for the past few days. He notes that movement aggravates Sx. He claims to have not been taking any pain medications for Sx. Patient is a former patient of Dr. Caballero but has been experiencing trouble with his insurance. PMHx of HTN and gout reported. On physical exam, patient is noted to be pacing and appears uncomfortable. Labs showed WBC 12.9, Hgb 13.6, Hct 41, absolute neuts 10.1, absolute monos 1, glucose 102. UA showed 3+ blood, 3+ RBC, squamous peith cells present, 1+ bacteria. US RENAL IMPRESSION: There are multiple echogenic calculi in the right kidney, the largest measuring. a maximum of 12 mm with mild right hydronephrosis. ABD/PEL CT IMPRESSION: There is a 6 mm calculus in the proximal right ureter with mild to moderate. right obstructive uropathy. There is additional nonobstructing bilateral. nephrolithiasis. During ED course, patient received fluids, Percocet 5/325, 2 tabs PO, Zofran 8 mg IV, morphine 10 mg IV x3, toradol 10 mg IV PUSH. Results of labs and tests were discussed, patient agreeable with admission. Patient's case was discussed with Dr. Caballero , he will come to see patient in the morning, patient to be admitted. Patient's case discussed with Dr. Josue, Dr. Josue accepts for admission. - Diagnoses Provider Diagnoses: Renal colic - Physician Notifications Discussed Care Of Patient With: Bin Caballero Time Discussed With Above Provider: 00:18 Instructed by Provider To: Other - 0018 - Patient's case was discussed with Dr. Caballero, he will come to see patient in the morning, patient to be admitted. 0112 - Patient's case discussed with Dr. Josue, Dr. Josue accepts for admission. Discharge - Sign-Out/Discharge Documenting (check all that apply): Patient Departure - admit Patient Received Moderate/Deep Sedation with Procedure: No - Discharge Plan Condition: Good Disposition: ADMITTED TO [facility] Referrals: No Primary Care Phys,NOPCP [Primary Care Provider] - - Attestation Statements Document Initiated by Scribe: Yes Documenting Scribe: CLARA CHOI Provider For Whom Scribe is Documenting (Include Credential): WILMA KITCHEN MD Scribe Attestation: CLARA Salazar, scribed for WILMA KITCHEN MD on 02/19/19 at 0239. Status of Scribe Document: Ready
[2019-02-18 22:41] LABS: Urine Appearance Cloudy; Urine Bacteria 1+ (Absent); Urine Bilirubin Negative (Negative); Urine Blood 3+ (Negative); Urine Color Yellow; Urine Glucose Negative (Negative); Urine Ketones Negative (Negative); Urine Nitrite Negative (Negative); Urine Protein Negative (Negative); Urine Red Blood Cell 3+(>10/hpf) (Absent); Urine Specific Gravity 1.012 (1.010-1.030); Urine Squamous Epithelial Cell Present (Absent); Urine Urobilinogen Negative (Negative); Urine White Blood Cell Absent (Absent)
[2019-02-19] MEDS ORDERED: Morphine 4 MG/ML VIAL (1 ml) 4 MG/ML VIAL IV ONE (00:19)
[2019-02-19] MEDS ORDERED: oxyCODONE/Acetamin 5/325 MG* TAB PO ONE (01:56)
[2019-02-19] MEDS ORDERED: cefTRIAXone(*) 1 GM in NS 0.9% 50 ML* 50 ML IVPB ONE (02:16)
[2019-02-19] MEDS ORDERED: Docusate CAP* 100 MG PO PRN (02:17)
[2019-02-19] MEDS ORDERED: Senna TAB PO PRN (02:17)
[2019-02-19] MEDS ORDERED: Acetaminophen TAB* 325 MG PO PRN (02:17)
[2019-02-19] MEDS ORDERED: Ketorolac INJ* 15 MG/ML 1 ML VIAL IV PUSH PRN (02:19)
[2019-02-19] MEDS: Lactated Ringers 1000 ML Bag* 1,000 ML IV SCH ×3 (02:36→20:44)
[2019-02-19] MEDS: Morphine INJ* 2 MG/ML 1 ML SYRINGE (TWO MG - NEW SYRINGE VERSION) IV PRN ×4 (03:27→23:43)
[2019-02-19] MEDS: hydrALAZINE IV* 20 MG/ML VIAL IV SLOW PU PRN ×2 (03:27→08:01)
--- NOTE | 2019-02-19 04:42 | HP ---
CC: Dr. Goins; Bin Caballero MD* HISTORY AND PHYSICAL: DATE OF ADMISSION: 02/19/19 TIME OF EVALUATION: 0200 CHIEF COMPLAINT: Right-sided flank pain. HISTORY OF PRESENT ILLNESS: This is a 38-year-old male with past medical history of kidney stones, who presents to the emergency room with acute onset of right- sided flank pain and right-sided abdominal pain. The patient states that on 02/16/19, he developed right-sided flank pain. This was shortly after he saw his primary care physician to establish with a primary. At that time, he was not having any issues, although they did notice he had a low-grade temp at that time. Later that day, he developed right-sided flank pain with wrapping around to the right side with pain after urinating, no dysuria. He has also noted gross hematuria. He has had nausea, vomiting, low- grade fevers and chills. He has had normal bowel movements. No chest pain, no shortness of breath, no URI symptoms. He was just started on blood pressure medication twice a day, is not sure what it is. Otherwise, review of systems is negative. In the emergency room, the patient had labs, imaging, was found to have a renal stone. Dr. Caballero was contacted. They recommended admission for further evaluation. In the emergency room, the patient received 1 L of fluid, 2 tabs of Percocet, Zofran 8 mg, a total of 30 mg of morphine, and Toradol 10 mg. PAST MEDICAL HISTORY: 1. History of nephrolithiasis. Has had a stent placed in the past. He had been followed by Dr. Caballero in the past. 2. History of hypertension. 3. Gout. MEDICATIONS: The patient states he is on a blood pressure medication twice a day. ALLERGIES: No known drug allergies. FAMILY HISTORY: Father at age 67. Mother is alive and healthy. SOCIAL HISTORY: The patient lives alone. 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 He quit smoking 5 to 6 months ago. At that time, he smoked a pack per day x20 years. He does occasionally vape. He drinks 2 drinks about 3 times a week. His healthcare proxy is his girlfriend Blanca. Code status: Full code. REVIEW OF SYSTEMS: A 14-point review of systems as mentioned in the HPI, otherwise negative. PHYSICAL EXAMINATION GENERAL: No acute distress. Some discomfort on the right side. Girlfriend at the bedside. VITAL SIGNS: Temp - T-max 99.4, pulse rate 78, respiratory rate 16, oxygen saturation 96% on room air, blood pressure 157/91. HEENT: Head: Normocephalic. Pupils equal and reactive, anicteric. Oropharynx : Mucous membranes moist. NECK: Supple. No lymphadenopathy. RESPIRATORY: Diminished breath sounds. No wheezing, rhonchi, or rales. CARDIAC: Regular rate and rhythm. Soft systolic murmur heard throughout. ABDOMEN: Positive bowel sounds. Soft. Right-sided discomfort. Right-sided CVA tenderness. No rebound or guarding. EXTREMITIES: No clubbing, cyanosis, or edema. +2 DPs. NEUROLOGIC: Alert and oriented x3. No gross focal neurologic deficits. LABORATORY DATA: White count 12.9, hemoglobin 13.6, hematocrit 41, platelets 246. Sodium 141, potassium 4.3, chloride 106, bicarb 27. BUN 14, creatinine 0.89. Glucose 102. UA shows +3 blood, positive squamous cells, +1 bacteria. RADIOGRAPHIC DATA: He had a renal ultrasound, multiple echogenic calculi in the right kidney. The largest measuring a maximum of 12 mm with mild right hydronephrosis. Abdominal and pelvis CAT scan: There is a 6-mm calculus in the proximal right ureter with oryl-xg-pffrcxzi right obstructive uropathy. There is additional nonobstructing bilateral nephrolithiasis. ASSESSMENT AND PLAN: This is a 38-year-old male with past medical history of nephrolithiasis, who presents to the emergency room with acute onset of right- sided flank pain and hematuria, found to have right calculi with mild-to- moderate obstructive uropathy. 1. Right ureteral calculi with npxf-pt-nfekezvo obstructive uropathy. Assessment and plan: We will admit him to short-stay with IV fluids. Keep him n.p.o. for likely stent placement. Continue pain control, bowel regimen. We will strain his urine. We will also obtain a blood culture and start him on empiric ceftriaxone and follow up on urine culture and continue him on IV fluids. 2. Chronic medical problems: Hypertension. The patient states he takes the medication twice a day. We will need to obtain med rec and contact the pharmacy in the morning. We will start him on hydralazine p.r.n. for now. 3. FEN: As mentioned, n.p.o., IV fluids. 4. DVT prophylaxis: The patient scores low risk. We will encourage ambulation. 5. Code status: Full code. PATIENT TIME: Greater than 30 minutes spent doing the history and physical, more than half the time spent in direct patient contact. [id number]/[facility] #: [id number] LAZARO
[2019-02-19] MEDS: oxyCODONE/Acetamin 5/325 MG* TAB PO PRN ×3 (06:19→23:44)
[2019-02-19 06:50] LABS: ABS Eosinophils 0.1 10^3/ul (0-0.6); ABS Lymphocytes 2.3 10^3/ul (1.0-4.8); ABS Monocytes 0.9 10^3/ul (0-0.8); Eosinophil % 1.1 %; Hematocrit 36 % (42-52); Hemoglobin 12.3 g/dL (14.0-18.0); Lymphocyte % 24.4 %; Mean Corpuscular HGB Conc 34 g/dL (31-36); Mean Corpuscular Hemoglobin 29 pg (27-31); Mean Corpuscular Volume 87 fL (80-94); Platelet Count 219 10^3/uL (150-450); Red Blood Count 4.18 10^6 /uL (4.18-5.48); Red Cell Distribution Width 13 % (10.5-15); White Blood Count 9.4 10^3/uL (3.5-10.8)
[2019-02-19 07:07] LABS: BUN/Creatinine Ratio 13.8 (8-20); EGFR African American 129.5 (>60); EGFR Non-African American 107.1 (>60); Potassium 3.4 mmol/L (3.5-5.0)
[2019-02-19] MEDS: Ondansetron INJ* 2 MG/ML VIAL IV PRN ×2 (08:12→12:48)
[2019-02-19] MEDS: HYDROmorphone INJ1* 1 MG/ML SYRINGE IV SLOW PU PRN ×2 (08:13→20:41)
[2019-02-19] MEDS ORDERED: Lidocaine 2% PF * 5 ML VIAL ONE (10:32)
[2019-02-19] MEDS ORDERED: fentaNYL* 50 MCG/ML 2 ML VIAL (100 MCG VIAL) ONE ×2 (10:32→11:06)
[2019-02-19] MEDS ORDERED: Midazolam* 1 MG/ML 2 ML VIAL (2 MG) ONE (10:32)
[2019-02-19] MEDS ORDERED: Propofol* 10 MG/ML 20 ML BTL ONE (10:33)
[2019-02-19] MEDS: Carvedilol TAB* 6.25 MG PO SCH ×2 (10:43→20:45)
[2019-02-19] MEDS ORDERED: Iohexol 180 (CONTRAST) 10 ML SDV IV ONE (10:49)
[2019-02-19] MEDS ORDERED: fentaNYL* 50 MCG/ML 2 ML VIAL (100 MCG VIAL) IV SLOW PU ONE (11:05)
[2019-02-19] MEDS ORDERED: Naloxone* 0.4 MG/ML 1 ML VIAL IV PRN (11:23)
[2019-02-19] MEDS ORDERED: Ibuprofen TAB* 600 MG PO PRN (11:23)
[2019-02-19] MEDS ORDERED: fentaNYL* 50 MCG/ML 2 ML VIAL (100 MCG VIAL) IV PRN (11:23)
[2019-02-19] MEDS ORDERED: DiMENhydriNATE IV* 50 MG/ML VIAL IV PUSH PRN (11:23)
[2019-02-19] MEDS ORDERED: Ondansetron INJ* 2 MG/ML VIAL ONE (12:44)
--- NOTE | 2019-02-19 14:51 | OP ---
DATE OF OPERATION: 02/19/19 - ROOM #410 DATE OF : 76 SURGEON: Bin Caballero MD. ANESTHESIOLOGIST: Dr. Mcrae. ANESTHESIA: General. PRE-OP DIAGNOSES: 1. Right renal colic. 2. Proximal right ureteral calculus. POST-OP DIAGNOSES: 1. Right renal colic. 2. Proximal right ureteral calculus. OPERATIVE PROCEDURE: 1. Cystoscopy. 2. Right retrograde pyelography and placement of right ureteral stent (6-Puerto Rican ). INDICATION FOR PROCEDURE: Mr. Prince is a 38-year-old white male, who had past history of renal calculus disease and who presented to the emergency room yesterday with symptoms of right renal colic. Noncontrast CT of the abdomen and pelvis showed a 6 to 7 mm calculus in the proximal right ureter just distal to the ureteropelvic junction associated with moderate hydronephrosis. There was another calculus in the lower pole calyx of the right kidney. The patient had severe pain and required periodic intravenous pain medication for control. He is now taken to the operating room for insertion of a right ureteral stent in preparation for definitive treatment of the stone. PATHOLOGY: At cystoscopy, the penile and bulbar urethrae looked normal. The prostatic urethra was short and open. Examination of the bladder showed normal mucosa. There were no suspicious bladder lesions seen. No calculi or diverticula were noted. At fluoroscopy, a radiopaque calculus was noted in the area of the proximal right ureter. There was some resistance to the introduction of the guidewire past the calculus into the renal pelvis indicating partial impaction of the stone. Clear hydronephrotic drip was noted from the right kidney. Retrograde pyelography showed moderate right hydronephrosis. DESCRIPTION OF PROCEDURE: After successful general anesthesia, the patient was placed in the lithotomy position and was prepped and draped for cystoscopy. Cystoscopy was performed. The bladder was inspected and the above findings were noted. A flexible-tip guidewire was then introduced inside the right ureter. After several attempts, it was successfully introduced past the stone and into the renal pelvis. A size 5-Puerto Rican open-ended catheter was then fed on top of the guidewire and positioned in the renal pelvis. Hydronephrotic drip was noted. 3 to 4 cc of non-diluted contrast were then injected delineating the collecting system and the proximal ureter. A size 6-Puerto Rican stent was then placed with the proximal end coiling in the renal pelvis and the distal end coiling inside the bladder. There was good drainage of contrast from the kidney and no extravasation. The patient tolerated the procedure well and left the operating room in good condition. The plan is to obtain a KUB postoperatively to assess the location of the stone. The patient will need definitive treatment of the stone at a later date. [id number]/[facility] #: [id number] LAZARO
--- NOTE | 2019-02-19 19:05 | PN ---
Subjective Date of Service: 02/19/19 Interval History: Patient seen and examined pre-op, in much pain, no fevers or chills. Endorses some nausea but no current vomiting. Pending stent insertion with Dr. Caballero today. Discussed blood pressure management at length. Objective Active Medications: Acetaminophen (Tylenol Tab*) 650 mg PO Q4H PRN PRN Reason: FEVER/PAIN Carvedilol (Coreg Tab*) 6.25 mg PO BID VINCE Last Admin: 02/19/19 10:43 Dose: 6.25 mg Docusate Sodium (Colace Cap*) 100 mg PO BID PRN PRN Reason: CONSTIPATION Hydralazine HCl (Apresoline Iv*) 10 mg IV SLOW PU Q6H PRN PRN Reason: BLOOD PRESSURE Last Admin: 02/19/19 08:01 Dose: 10 mg Hydromorphone HCl (Dilaudid Inj1s*) 1 mg IV SLOW PU Q4H PRN PRN Reason: PAIN - SEVERE Last Admin: 02/19/19 08:13 Dose: 1 mg Lactated Ringer's (Lactated Ringers 1000 Ml Bag*) 1,000 mls @ 150 mls/hr IV PER RATE [facility] Last Admin: 02/19/19 14:03 Dose: 150 mls/hr Ceftriaxone Sodium 1 gm/ (Sodium Chloride) 50 mls @ 200 mls/hr IVPB Q24H [facility] Morphine Sulfate (Morphine Inj (Syringe))*) 2 mg IV Q4H PRN PRN Reason: PAIN - MILD Last Admin: 02/19/19 14:00 Dose: 2 mg Ondansetron HCl (Zofran Inj*) 4 mg IV Q4H PRN PRN Reason: NAUSEA/VOMITING Last Admin: 02/19/19 12:48 Dose: 4 mg Oxycodone/Acetaminophen (Percocet 5/325 Tab*) 1 tab PO Q4H PRN PRN Reason: Pain Last Admin: 02/19/19 17:23 Dose: 1 tab Senna (Senokot Tab*) 1 tab PO BID PRN PRN Reason: CONSTIPATION Vital Signs - 8 hr 02/19/19 02/19/19 02/19/19 11:07 12:26 12:27 Temperature 97.5 F Pulse Rate 56 58 Respiratory 16 8 Rate Blood Pressure 107/44 (mmHg) O2 Sat by Pulse 99 99 Oximetry 02/19/19 02/19/19 02/19/19 12:30 12:35 12:40 Temperature Pulse Rate 61 61 62 Respiratory 9 10 11 Rate Blood Pressure 84/50 101/56 91/55 (mmHg) O2 Sat by Pulse 99 99 99 Oximetry 02/19/19 02/19/19 02/19/19 12:46 13:00 13:15 Temperature Pulse Rate 83 74 64 Respiratory 14 17 13 Rate Blood Pressure 139/91 146/87 136/79 (mmHg) O2 Sat by Pulse 96 96 94 Oximetry 02/19/19 02/19/19 02/19/19 13:30 13:52 14:00 Temperature 98.1 F Pulse Rate 64 64 Respiratory 14 16 16 Rate Blood Pressure 133/86 144/87 (mmHg) O2 Sat by Pulse 95 98 Oximetry 02/19/19 02/19/19 02/19/19 14:55 15:00 15:50 Temperature 98.5 F 98.4 F Pulse Rate 63 60 Respiratory 18 16 16 Rate Blood Pressure 149/86 124/75 (mmHg) O2 Sat by Pulse 99 99 Oximetry 02/19/19 02/19/19 02/19/19 16:00 17:23 18:23 Temperature Pulse Rate 77 Respiratory 16 16 Rate Blood Pressure 135/74 (mmHg) O2 Sat by Pulse 99 99 Oximetry Oxygen Devices in Use Now: None Appearance: alert, mild distress Eyes: No Scleral Icterus, PERRLA Ears/Nose/Mouth/Throat: NL Teeth, Lips, Gums, Mucous Membranes Moist Neck: NL Appearance and Movements; NL JVP, Trachea Midline Respiratory: Symmetrical Chest Expansion and Respiratory Effort, Clear to Auscultation Cardiovascular: NL Sounds; No Murmurs; No JVD, RRR, No Edema Abdominal: NL Sounds; No Tenderness; No Distention Extremities: No Edema, No Clubbing, Cyanosis Skin: No Rash or Ulcers Neurological: Alert and Oriented x 3, NL Sensation, NL Gait, NL Muscle Strength and Tone Nutrition: - - NPO Result Diagrams: 02/19/19 06:34 02/19/19 06:33 Additional Lab and Data: Lab Results 02/18/19 02/18/19 Range/Units 20:52 20:52 WBC 12.9 H (3.5-10.8) 10^3/uL RBC 4.66 (4.18-5.48) 10^6 /uL Hgb 13.6 L (14.0-18.0) g/dL Hct 41 L (42-52) % MCV 87 (80-94) fL MCH 29 (27-31) pg MCHC 34 (31-36) g/dL RDW 13 (10.5-15) % Plt Count 246 (150-450) 10^3/uL MPV 7.9 (7.4-10.4) fL Neut % (Auto) 78.4 % Lymph % (Auto) 13.1 % Alcorn % (Auto) 8.0 % Eos % (Auto) 0.2 % Baso % (Auto) 0.3 % Absolute Neuts (auto) 10.1 H (1.5-7.7) 10^3/ul Absolute Lymphs (auto) 1.7 (1.0-4.8) 10^3/ul Absolute Monos (auto) 1.0 H (0-0.8) 10^3/ul Absolute Eos (auto) 0.0 (0-0.6) 10^3/ul Absolute Basos (auto) 0.0 (0-0.2) 10^3/ul Absolute Nucleated RBC 0.0 10^3/ul Nucleated RBC % 0.0 Sodium 141 (135-145) mmol/L Potassium 4.3 (3.5-5.0) mmol/L Chloride 106 (101-111) mmol/L Carbon Dioxide 27 (22-32) mmol/L Anion Gap 8 (2-11) mmol/L BUN 14 (6-24) mg/dL Creatinine 0.89 (0.67-1.17) mg/dL Est GFR ( Amer) 114.6 (>60) Est GFR (Non-Af Amer) 94.7 (>60) BUN/Creatinine Ratio 15.7 (8-20) Glucose 102 H (70-100) mg/dL Calcium 10.2 (8.6-10.3) mg/dL Total Bilirubin 0.50 (0.2-1.0) mg/dL AST 19 (13-39) U/L ALT 24 (7-52) U/L Alkaline Phosphatase 63 (34-104) U/L Total Protein 7.8 (6.4-8.9) g/dL Albumin 5.0 (3.2-5.2) g/dL Globulin 2.8 (2-4) g/dL Albumin/Globulin Ratio 1.8 (1-3) Diagnostic Imaging: Patient Name: ARIANA VALENZUELA Medical Record#: [id number] Ordering Physician: Burton Tobin MD Acct.#: [id number] : 1980 Age: 38 Sex: M Location: EMERGENCY DEPARTMENT Exam Date: 02/18/191942 ADM Status: REG ER Order Information: US RENAL LIMITED RIGHT Accession Number: [id number] CPT: 11991 EXAM: US Retroperitoneal Limited, Kidneys EXAM DATE/TIME: 02/18/2019 8:45 PM CLINICAL HISTORY: 38 years old, male; Abdominal pain; Localized; Right; Additional info: Right flank pain, h/o stones TECHNIQUE: Imaging protocol: Real-time ultrasound of the retroperitoneum with image documentation. Examination was focused on the kidneys. COMPARISON: No relevant prior studies available. FINDINGS: Right kidney: There are multiple echogenic calculi in the right kidney, the largest measuring a maximum of 12 mm with mild right hydronephrosis. Left kidney: The left kidney was not evaluated. Bladder: Bilateral ureteral jets were present in the urinary bladder and the urinary bladder is otherwise grossly unremarkable. IMPRESSION: There are multiple echogenic calculi in the right kidney, the largest measuring a maximum of 12 mm with mild right hydronephrosis. To contact [facility] with a general question: [facility] - [phone] For direct physician to physician contact: Physician Hotline - [phone] [facility] ([facility] Facility ID #[id number]) <Electronically signed by Skinny Burgos MD in OV> 02/18/192137 Dictated By: Skinny Burgos MD Dictated Date/Time: 02/18/192137 Transcribed Date/Time: Copy to: Assess/Plan/Problems-Billing Assessment: This is a 38 year old male with history of HTN that presents with flank and abdominal pain, noted to have right ureteral stone, pending stent insertion. - Patient Problems (1) Right ureteral calculus Code(s): N20.1 - CALCULUS OF URETER SNOMED Code(s): 47463042 Comment: - NPO, pain control, IVF - Plan for stent with Dr. Romero - Ceftriaxone (2) Hypertensive urgency Code(s): I16.0 - HYPERTENSIVE URGENCY SNOMED Code(s): 054996628 Comment: - Patient states he has been on and off with his BP meds because he has been unwell the last few days - Hydralazine PRN - Restarted coreg BID, BP improved - Monitor BP closely Status and Disposition: Plan was to discharge patient immediately post-procedure, however, patient was still having significant pain and nausea post-op. Will keep patient overnight for continued IVF, anti-emetics and pain control and discharge in AM. Discussed with primary RN.
[2019-02-20] MEDS ORDERED: cefTRIAXone(*) 1 GM in NS 0.9% 50 ML* 50 ML IVPB SCH (03:00)
[2019-02-20] MEDS: HYDROmorphone INJ1* 1 MG/ML SYRINGE IV SLOW PU PRN (04:29)
[2019-02-20] MEDS: Lactated Ringers 1000 ML Bag* 1,000 ML IV SCH (06:17)
[2019-02-20] MEDS: Morphine INJ* 2 MG/ML 1 ML SYRINGE (TWO MG - NEW SYRINGE VERSION) IV PRN (07:59)
[2019-02-20] MEDS: Carvedilol TAB* 6.25 MG PO SCH (07:59)
[2019-02-20 11:13] VITALS: BP 153/97
[2019-02-20] MEDS: oxyCODONE/Acetamin 5/325 MG* TAB PO PRN (12:00)
--- NOTE | 2019-02-20 14:10 | DS ---
CC: Dr. Vanesa Goins; Dr. Bin Caballero, Urology; Dr. Garry Galvan DISCHARGE SUMMARY: DATE OF ADMISSION: 02/19/19 DATE OF DISCHARGE: 02/20/19 PRIMARY CARE PROVIDER: Dr. Vanesa Goins. MY ATTENDING FOR TODAY: Dr. Garry Galvan. CHIEF COMPLAINT: Right-sided flank pain. PRIMARY DISCHARGE DIAGNOSIS: Right ureteral calculus. HOSPITAL COURSE: Please refer to admitting H and P dated 02/19/19, but in short, Mr. Prince is a 38 -year-old male who presented to the emergency department on 02/18/19 with a complaint of right-sided flank pain, nausea, vomiting and fever that started on 02/16/19. The patient states he has had histo ry of ureteral calculus in the past. The patient describes low-grade fever and chills, difficulty wi th urination and radiating right-sided flank pain x2 days. He came to the emergency department for e valuation. He had labs and imaging. He was found to have a renal stone on the right. Dr. Caballero was seeing the patient in consultation. The patient was recommended for admission. He was given IV fluids and ceftriaxone and was prepped for cystoscopy. He underwent a retrograde pyelogram and stent placement in the right ureter. He essentially had an uneventful postprocedure course. The patient did have a significant amount of pain and also had some persistent difficulty with urination postproc edure. The patient was kept in observation overnight in the hospital for additional IV fluids and pa in management. He was seen on the morning of 02/20/19, much improved. The patient is still complain ing of spasm-type pain, but overall has improved. Vital signs remained stable. He is voiding freely and is stable for discharge today. The patient also did have some hypertensive urgency during the c ourse of his admission. The patient did state that he had missed some doses of his hypertensive medic ation which is Coreg that he is supposed to be taking 2 times a day. He states because he had not be en feeling well and having severe pain, fever and chills, he had missed some doses of his antihyperte nsive medications. Blood pressure was 200/112 in the emergency department. This could in part be at tributed to missed medication as well as increased pain response. The patient did receive several do ses of hydralazine with good response. His blood pressure responded appropriately and blood pressure remained stable for the duration of his admission. Also of note, initially, the patient was meeting SIRS criteria with tachycardia and mild low- grade fever. He did receive a liter of fluid and pain medication; however, he did not fully meet sepsis criteria. Blood cultures were negative. Urine cul ture was also negative. Rest of his labs were unremarkable. He had a mild elevated white count of 1 2.9 at admission, likely due to inflammation rather than infection. Rest of his lab work was unremar kable. DISCHARGE DIAGNOSIS: Right renal calculus, status post stent insertion. DISCHARGE MEDICATIONS: Include: 1. Coreg 6.25 mg p.o. b.i.d., to be resumed at home. 2. Tramadol 50 mg p.o. q.6 hours as needed for pain, max daily dose 4 tablets for 3 days only. 3. Colchicine 0.6 mg p.o. daily as needed. REVIEW OF SYSTEMS: On the day of discharge, the patient denies any fever, fatigue, or chills. He do es complain of mild spasm-like right-sided flank pain. States he is voiding freely. Denies any furt her abdominal pain. No nausea, no vomiting. No further urinary or bowel complaints. PHYSICAL EXAMINATION: Vital signs are blood pressure 132/89, heart rate 64, respiratory rate 16, O2 saturation 99% on room air, temperature 98.3. HEENT: The patient is atraumatic, normocephalic. PER RLA. Nonicteric sclerae. Oral mucosa is moist. Tongue is midline. Neck is supple, nontender. No JVD noted. No carotid bruits auscultated. Cardiovascular: S1, S2 present. No murmurs, gallops, or rubs noted. Abdomen is soft, nontender, nondistended. Positive bowel sounds in all 4 quadrants. N o CVA tenderness noted on the right or the left. is deferred. Musculoskeletal: There is no clubb ing, no cyanosis, and no edema. He has positive pulses, +2 bipedal; full range of motion, steady gai t. Neurologic: Grossly intact with no focal deficits. Psychiatric: He is cooperative and appropri ate. DIAGNOSTIC STUDIES/LAB DATA: WBCs 9.4, RBCs 4.18, hemoglobin 12.3, hematocrit 36, platelets 219. So dium 140, potassium 3.4, chloride 107, CO2 of 26, BUN 11, creatinine 0.80, GFR is 107.1, glucose 101, calcium 9.0. Urinalysis on admission showed yellow cloudy urine, pH of 5, specific gravity of 1.012 , 3+ blood, negative for protein, negative for ketones, negative for nitrites, negative for wbc's, 3+ rbc's, 1+ bacteria, negative for glucose. Microbiology: Urine culture with no growth from 02/18/19 . Blood cultures from 02/19/19 also negative to date. Imaging: Renal ultrasound dated 02/18/19 shows multiple echogenic calculi in the right kidney, the l argest measuring maximum of 12 mm with right-sided mild hydronephrosis. CT of the abdomen and pelvis also dated 02/18/19, impression shows a 6 mm calculus in the right proxi mal ureter with lkia-un-indtdfor right obstructive uropathy. There is additional nonobstructing bilat eral nephrolithiasis. DISPOSITION: The patient was discharged to home in the care of his in stable condition. All qu estions were answered. The patient stated his understanding of his discharge instructions and follow ups, also his medications at the time of discharge. FOLLOWUPS: The patient was instructed to follow up with Dr. Bin Caballero. Phone number is provided for him to call Dr. Caballero's office for followup appointment to discuss stent removal. He was als o instructed to follow up with Dr. Vanesa Goins, his primary care provider, to continue to manage h is blood pressure medications and follow up as an outpatient. The patient was also instructed to fol low up with Dr. Caballero if he has any additional pain or urinary complaints. He should call Dr. Dereje diamond first with any additional questions. DIET: Regular diet as tolerated. ACTIVITY: Progress as tolerated. TIME SPENT: Approximately 40 minutes developing discharge plan of care and counseling the patient. UNIQUE GARCIA NP [id number]/[facility] #: [id number]
== END 2019-02-20 12:44 | disposition home or self-care (01) ==
LOC: ED 16:40 → MED 02-19 02:17
PROVIDERS: ADMIT Pediatrics; ATTEND Pediatrics
DX: N20.1 Calculus of ureter (principal); Z87.442 Personal history of urinary calculi; R10.84 Generalized abdominal pain; I16.0 Hypertensive urgency; R31.9 Hematuria, unspecified; Z87.891 Personal history of nicotine dependence; R11.2 Nausea with vomiting, unspecified; N20.0 Calculus of kidney
CPT/HCPCS: 36415; 74018; 74176; 74420; 76775; 80048; 80053; 81003; 81015; 85025; 87040; 87086; 96365; 96372; 96375; 96376; 99283; A9270-GY; C1876; G0378; J0360; J0696; J1170; J1885; J2250; J2270; J2405; J2704; J3010

== ENCOUNTER 2019-04-06 05:34 | Day surgery (SDC) | payer SELFPAY ==
--- NOTE | 2019-03-31 23:47 | HP ---
HISTORY AND PHYSICAL: DATE OF PLANNED ADMISSION AND SURGERY: 04/06/19 HISTORY OF PRESENT ILLNESS: Mr. Prince is a 38-year-old white male who is admitted with right renal calculus, status post placement of right ureteral stent for shockwave lithotripsy of the right renal calculus, followed by cystoscopy and removal of the right ureteral stent. Please refer to the detailed history and physical for the patient's admission to [facility] on 02/19/19. Mr. Prince is a known stone former and had required left ureteroscopy for stone extraction in December 2009. He was doing well until about 6 weeks ago when he presented to the emergency room with symptoms of right renal colic. He had a noncontrast CT of the abdomen and pelvis, which showed a 6 mm calculus in the proximal right ureter associated with moderate hydronephrosis. The patient was admitted to the hospitalist service. He was noted to have a significantly elevated blood pressure; however, he had not been taking his antihypertensive medication Coreg twice a day. The patient was managed with pain medication and was restarted on his antihypertensive with good response of his hypertension. I took him to the operating room on 02/19/19 and had an insertion of right ureteral stent. He continued to have pain postoperatively and was kept an extra day and his pain resolved and the hypertension well controlled. He was discharged home on Coreg twice a day. Postoperative KUB showed the right ureteral stent to be in good position and 6 to 7 mm calculus in the right renal pelvis. The patient is now admitted for shockwave lithotripsy of the right renal calculus followed by removal of the right ureteral stent. PAST MEDICAL HISTORY AND SYSTEM REVIEW: As detailed on his admission note. He has history of renal calculus disease, history of arthritis of his cervical spine. ALLERGIES: He denies any allergies to medications. SOCIAL HISTORY: He was a chronic smoker, however, he stopped. He has several drinks per week. PHYSICAL EXAMINATION GENERAL: Pleasant white male who looks his age. VITAL SIGNS: Blood pressure 130/64. LUNGS: Clear. HEART: Regular and rhythmic, no murmurs. ABDOMEN: Soft and he had mild right CVA tenderness. IMPRESSION: Right renal calculus, status post placement of right ureteral stent. PLAN: Plan is for shockwave lithotripsy of the right renal calculus and if there is good fragmentation of the stone for cystoscopy and removal of the right ureteral stent. I discussed the above plans with the patient. All his questions were answered. [id number]/[facility] #: [id number] LAZARO
[~2019-04-06 05:34] MED LIST changes: -Aspirin 81 mg CHEW TAB* 81 MG TAB.CHEW PO ONE; +Buffered Lidocaine 1% SYRIN* 1 ML/SYRINGE INTRADERM ONE; -Diazepam TAB(*) 5 MG PO ONE
[2019-04-06] MEDS ORDERED: PROCHLORPERAZINE INJ 5 MG/ML 2 ML VIAL IV PRN (05:48)
[2019-04-06] MEDS ORDERED: fentaNYL* 50 MCG/ML 2 ML VIAL (100 MCG VIAL) IV PRN (05:48)
[2019-04-06] MEDS ORDERED: HYDROmorphone INJ1* 1 MG/ML SYRINGE IV PRN (05:48)
[2019-04-06] MEDS ORDERED: Naloxone* 0.4 MG/ML 1 ML VIAL IV PRN (05:48)
[2019-04-06] MEDS ORDERED: DiMENhydriNATE IV* 50 MG/ML VIAL IV PUSH PRN (05:48)
[2019-04-06] MEDS ORDERED: Dexamethasone TAB* 4 MG PO ONE (06:00)
[2019-04-06] MEDS ORDERED: Famotidine IV* 10 MG/ML 2 ML (20 mg) IV ONE (06:00)
[2019-04-06] MEDS ORDERED: Lactated Ringers 1000 ML Bag* 1,000 ML IV SCH (06:00)
[2019-04-06] MEDS ORDERED: Ondansetron ODT TAB* 4 MG PO ONE (06:00)
[2019-04-06] MEDS ORDERED: Buffered Lidocaine 1% SYRIN* 1 ML/SYRINGE INTRADERM ONE (06:27)
[2019-04-06] MEDS ORDERED: cefTRIAXone(*) 2 GM ADDV.VIAL IVPB ONE (06:27)
[2019-04-06] MEDS ORDERED: Ondansetron ODT TAB* 4 MG ONE (06:27)
[2019-04-06] MEDS ORDERED: Dexamethasone TAB* 4 MG ONE ×2 (06:27→06:28)
[2019-04-06] MEDS ORDERED: Famotidine IV* 10 MG/ML 2 ML (20 mg) ONE (06:28)
[2019-04-06 06:56] LABS: Activated Partial Thrombo Time 43.4 seconds (26.0-38.0); INR 0.97 (0.82-1.09)
[2019-04-06] MEDS ORDERED: fentaNYL* 50 MCG/ML 5 ML VIAL (250 MCG VIAL) ONE (07:13)
[2019-04-06] MEDS ORDERED: Midazolam* 1 MG/ML 5 ML VIAL (5 MG) ONE (07:13)
[2019-04-06] MEDS ORDERED: Metoprolol Tartrate IV* 1 MG/ML 5 ML VIAL ONE (07:54)
[2019-04-06] MEDS ORDERED: Propofol* 10 MG/ML 20 ML BTL ONE (07:54)
[2019-04-06] MEDS ORDERED: hydrALAZINE IV* 20 MG/ML VIAL ONE (07:54)
[2019-04-06] MEDS ORDERED: HYDROmorphone INJ1* 1 MG/ML SYRINGE ONE (08:14)
[2019-04-06] MEDS ORDERED: oxyCODONE/Acetamin 5/325 MG* TAB ONE (09:09)
[2019-04-06] MEDS: oxyCODONE/Acetamin 5/325 MG* TAB PO PRN ×2 (09:11→09:12)
--- NOTE | 2019-04-06 09:49 | OP ---
DATE OF OPERATION: 04/06/[address] [facility] DATE OF : 76 SURGEON: Bin Caballero MD ANESTHESIOLOGIST: Dr. Michael Reed. ANESTHESIA: General. PRE-OP DIAGNOSES: 1. Right renal calculi. 2. Status post placement of right ureteral stent. POST-OP DIAGNOSIS: 1. Right renal calculi. 2. Status post placement of right ureteral stent. OPERATIVE PROCEDURE: 1. Shockwave lithotripsy of right renal calculi (8 mm in renal pelvis, 8 mm in lower pole calyx right kidney). 2. Cystoscopy and removal of right ureteral stent. INDICATION FOR PROCEDURE: Mr. Prince is a 38-year-old white male, who was admitted 6 weeks ago with right renal colic and was noted to have an 8 mm calculus at the right ureteropelvic junction and a 6 to 7 mm calculus in the lower pole calyx of the left kidney and a 5 mm calculus in the upper pole calyx of the right kidney on CT scan. The patient had urgent placement of right ureteral stent. Postoperative KUB showed that the stone at the ureteropelvic junction had migrated into the renal pelvis. The patient is now admitted for definitive treatment of the stones. PATHOLOGY: Preoperative KUB again showed the right ureteral stent in good position and an 8 mm radiopaque calculus in the renal pelvis and a 6 to 8 mm calculus in the lower pole calyx of the right kidney. The calculus in the upper pole of the right kidney was not visualized on the KUB. DESCRIPTION OF PROCEDURE: After successful general anesthesia, the patient was placed in the supine position on the shockwave lithotripsy table. The calculus in the right renal pelvis was visualized in both the PA and the oblique x-ray views and the position of the generator and of the patient were adjusted to have that stone in the focus of the shock waves. A total of 1100 shocks were then delivered at the rate of 60 shocks per minute. A 3 minutes break was taken after the initial 300 shocks. There was very good fragmentation of the stone. The calculus in the lower pole calyx of the right kidney was then treated similarly. He received 900 shocks for that stone with a very good fragmentation. A total of 2,000 shocks were given. With the good fragmentation of the stones, it was decided to remove the stent. The patient was prepped and draped for a flexible cystoscopy. Flexible cystoscopy was performed. The right ureteral stent was grasped and was pulled out intact. The patient tolerated the procedure well and left the operating room in good condition. [id number] #: [id number]
[2019-04-06 09:54] VITALS: BP 138/87
== END 2019-04-06 09:54 | disposition home or self-care (01) ==
LOC: OR 05:34
PROVIDERS: ATTEND Urology
DX: N20.0 Calculus of kidney (principal); Z87.442 Personal history of urinary calculi; I10 Essential (primary) hypertension; Z87.891 Personal history of nicotine dependence; F41.9 Anxiety disorder, unspecified
CPT/HCPCS: 36415; 74018; 85610; 85730; 87086; A9270-GY; J0360; J0696; J1170; J2250; J2704; J3010; J3490; J8540

== ENCOUNTER 2020-09-19 08:00 | Observation (INO) ==
[2020-09-19 08:53] LABS: ABS Eosinophils 0.4 10^3/ul (0-0.6); ABS Lymphocytes 2.3 10^3/ul (1.0-4.8); ABS Monocytes 0.7 10^3/ul (0-0.8); ABS Neutrophils 5.4 10^3/ul (1.5-7.7); Eosinophil % 4.4 %; Hematocrit 41 % (42-52); Hemoglobin 13.9 g/dL (14.0-18.0); Mean Corpuscular HGB Conc 34 g/dL (31-36); Mean Corpuscular Hemoglobin 29 pg (27-31); Mean Corpuscular Volume 87 fL (80-94); Mean Platelet Volume 7.6 fL (7.4-10.4); Nucleated Red Blood Cells % 0.1; Platelet Count 282 10^3/uL (150-450); Red Blood Count 4.76 10^6 /uL (4.18-5.48); Red Cell Distribution Width 13 % (10-15); White Blood Count 8.8 10^3/uL (3.5-10.8)
[2020-09-19 09:05] LABS: Albumin 4.6 g/dL (3.2-5.2); Albumin/Globulin Ratio 1.6 (1-3); BUN/Creatinine Ratio 20.5 (8-20); EGFR African American 123.5 (>60); EGFR Non-African American 102.1 (>60); Globulin 2.9 g/dL (2-4); Potassium 4.1 mmol/L (3.5-5.0); Total Bilirubin 0.3 mg/dL (0.2-1.0); Total Protein 7.5 g/dL (6.4-8.9)
[2020-09-19] MEDS ORDERED: Metoprolol Tartrate 5 mg VIAL 5 ml VIAL (1 mg/ml) IV ONE (09:43)
[2020-09-19] MEDS ORDERED: Ondansetron 4 mg VIAL 2 MG/ML 2 ml VIAL IV PRN (12:00)
[2020-09-19] MEDS ORDERED: Senna TAB 8.6 mg TAB PO PRN (12:08)
[2020-09-19] MEDS ORDERED: Labetalol IV 5 MG/ML 20 ml VIAL IV PUSH ONE (12:36)
[2020-09-19] MEDS ORDERED: Diazepam INJ CARPUJECT 5 MG/ML IV PRN (12:36)
[2020-09-19] MEDS: NS 0.9% 1000 ml BAG 1,000 ML IV SCH ×2 (13:26→20:26)
[2020-09-19 14:03] LABS: Urine Appearance Clear; Urine Bilirubin Negative (Negative); Urine Blood 2+ (Negative); Urine Color Yellow; Urine Glucose Negative (Negative); Urine Ketones Negative (Negative); Urine Nitrite Negative (Negative); Urine Protein 1+(30 mg/dL) (Negative); Urine Specific Gravity 1.012 (1.010-1.030); Urine Urobilinogen Negative (Negative)
[2020-09-19 14:06] LABS: Urine Bacteria Absent (Absent); Urine Red Blood Cell 3+(>10/hpf) (Absent); Urine White Blood Cell Trace(0-5/hpf) (Absent)
[2020-09-19] MEDS: Morphine 2 MG/ML SYRINGE IV PRN ×2 (14:33→22:32)
[2020-09-19] MEDS ORDERED: DiMENhydriNATE IV 50 mg/ml 1 ml VIAL IV PUSH PRN (19:57)
[2020-09-19] MEDS ORDERED: Naloxone 0.4 mg VIAL 0.4 mg/ml 1 ml VIAL IV PRN (19:57)
[2020-09-19] MEDS: fentaNYL 100 mcg/2 ml 50 MCG/ML VIAL IV PRN ×2 (20:02→20:16)
[2020-09-20] MEDS ORDERED: oxyCODONE/Acetamin 5/325 mg TAB PO PRN (00:53)
[2020-09-20] MEDS: oxyCODONE/Acetamin 5/325 mg TAB PO PRN ×2 (01:09→07:26)
[2020-09-20] MEDS: Morphine 2 MG/ML SYRINGE IV PRN (03:59)
[2020-09-20 07:35] VITALS: BP 141/96
== END 2020-09-20 11:19 | disposition home or self-care (01) ==
LOC: SSU 08:00 → ED 08:00
PROVIDERS: ADMIT Pediatrics; ATTEND Internal Medicine